=== PATIENT | male | born 1940 | race American Indian/Alaskan Native ===

== ENCOUNTER 2017-04-08 05:42 | Day surgery (SDC) | payer MEDICARE ==
[2017-04-08] MEDS ORDERED: NACL 0.9% 1000 ML 1,000 ML IV SCH (06:00)
[2017-04-08] MEDS ORDERED: PEPCID PO NR (06:00)
[2017-04-08] MEDS ORDERED: ANCEF/STERILE WATER 2 GM/20 ML 2 GM/20 ML SYRINGE IV NR (06:00)
[2017-04-08] MEDS ORDERED: NACL BACTERIOSTATIC INFILTRATI ONE (06:41)
[2017-04-08 07:03] LABS: Basophils % (Auto) 0.5 % (0.0-1.8); Eosinophils % (Auto) 1.8 % (0.0-4.3); Hemoglobin 8.4 gm/dl (11.8-15.2); Mean Corpuscular HGB Conc 32 % (32-34); Mean Corpuscular Hemoglobin 27 pg (28-32); Mean Corpuscular Volume 83 fl (84-94); Platelet Count 216 K/mm3 (140-440); Red Blood Count 3.15 M/mm3 (3.65-5.03); Red Cell Distribution Width 18.6 % (13.2-15.2); White Blood Count 8.9 K/mm3 (4.5-11.0)
[2017-04-08 07:15] LABS: Calcium 8.9 mg/dL (8.4-10.2); Chloride 100.7 mmol/L (98-107); Potassium 3.6 mmol/L (3.6-5.0)
[2017-04-08] MEDS ORDERED: NACL 0.9% 500 ML 500 ML ONE (07:22)
[2017-04-08] MEDS ORDERED: MARCAINE-EPI/PF 0.5%-1:200,000 INFILTRATI ONE (07:22)
[2017-04-08] MEDS ORDERED: HEPARIN ONE (07:22)
[2017-04-08] MEDS ORDERED: HEPARIN 10,000 UNITS/10 ML ONE ×2 (07:23→10:18)
[2017-04-08 07:26] LABS: INR 1.09 (0.87-1.13)
[2017-04-08] MEDS ORDERED: XYLOCAINE MPF 2% ONE (07:28)
[2017-04-08] MEDS ORDERED: SUBLIMAZE ONE (07:29)
--- NOTE | 2017-04-08 07:29 | Anesthesia Consultation ---
Anesthesia Consult and Med Hx Date of service: 04/08/17 - Airway Anesthetic Teeth Evaluation: Edentulous ROM Head & Neck: Adequate Mental/Hyoid Distance: Adequate Mallampati Class: Class II Intubation Access Assessment: Probably Good - Pulmonary Exam CTA: Yes - Cardiac Exam Cardiac Exam: RRR - Pre-Operative Health Status ASA Pre-Surgery Classification: ASA3 Proposed Anesthetic Plan: General - Pulmonary Hx Smoking: Yes (quit 25 years ago) SOB: Yes COPD: Yes Home Oxygen Therapy: Yes (3L/min @ home) Hx Sleep Apnea: Yes (No CPAP) - Cardiovascular System Hx Hypertension: Yes (h/o CHF) Hx Peripheral Vascular Disease: Yes - Central Nervous System Hx Neuromuscular Disorder: No Hx Psychiatric Problems: No - Gastrointestinal Hx Gastroesophageal Reflux Disease: Yes - Endocrine Hx Renal Disease: Yes Hx End Stage Renal Disease: Yes Hx Non-Insulin Dependent Diabetes: Yes (not on insulin or oral meds as of ) - Hematic Hx Anemia: Yes Hx Sickle Cell Disease: No - Other Systems Hx Alcohol Use: Yes (former) Hx Substance Use: No Hx Cancer: No Hx Obesity: No
[2017-04-08] MEDS ORDERED: DIPRIVAN 10 MG/ML IV ONE (07:30)
--- NOTE | 2017-04-08 07:30 | Anesthesia Day of Surgery ---
Anesthesia Day of Surgery - Day of Surgery Patient Examined: Yes Patient H&P Reviewed: Yes Patient is NPO: Yes
[2017-04-08] MEDS ORDERED: DILAUDID IV PRN (08:27)
[2017-04-08] MEDS ORDERED: MARCAINE-EPI 0.5%-1:200,000 INFILTRATI ONE ×2 (08:50)
[2017-04-08] MEDS ORDERED: ePHEDrine SULFATE ONE (09:08)
[2017-04-08] MEDS ORDERED: NACL 0.9% 500 ML IRRIGATION ONE (09:15)
[2017-04-08] MEDS ORDERED: HEPARIN 10,000 UNITS/10 ML IV ONE (09:15)
[2017-04-08] MEDS ORDERED: NACL 0.9% IR ONE (09:19)
[2017-04-08] MEDS ORDERED: ZOFRAN IV PRN (10:00)
[2017-04-08] MEDS ORDERED: ZOFRAN ONE (10:15)
[2017-04-08] MEDS ORDERED: DECADRON ONE (10:15)
--- NOTE | 2017-04-08 11:04 | Operative Report ---
Operative Report Operative Report: Operative note: Date: 04/08/2017 Preoperative diagnosis: Graft pseudoaneurysm with bleeding Postoperative diagnosis: Same. Operation: Left AVG revision with 6 mm AcuSeal Surgeon: Keiko Perdomo. Asst.: None Anesthesia: Gen. 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 Left arm was positioned on extension table, prepped and draped in sterile fashion. This incision along proximal portion of AV graft beyond this to the aneurysmal dilatation was made with 15 blade and carried down with electrocautery. The graft was dissected and surrounded with vessel loop. Next, incision was made over the distal portion of AV graft just beyond pseudoaneurysmal dilatation with 15 blade and carried down with electrocautery. The graft was dissected circumferentially and taken a vessel loop. A 6 mm AcuSeal graft was tunneled using Janet-Wick tunneler. The patient was heparinized with 2000 units of heparin. Then, proximal and distal control of arterial and of the graft was done with DeBakey clamps. Sitting is no portion of AV graft was sutured closed with 5-0 [id number]. End to end anastomosis of AcuSeal to 80 graft was created using 6-0 Prolene circumferentially. Then graft was cut distally and exist any graft was also cut and sent anastomosis was created using 6-0 Prolene. At the end of procedure there was a good radial pulse and thrill in the graft. Patient tolerated procedure well and was transported to PACU in stable condition.
--- NOTE | 2017-04-08 11:11 | Short Stay Summary ---
Short Stay Documentation Date of service: 04/08/17 - History H&P: obtained from office - Allergies and Medications Current Medications: Allergies No Known Allergies Allergy (Unverified 04/05/17 14:42) Home Medications Medication Instructions Recorded Confirmed Last Taken Type Aspirin [Adult Low Dose Aspirin EC] 81 mg PO DAILY 02/28/17 04/08/17 04/07/17 History Sevelamer HCl [Renagel] 800 mg PO TIDWM 02/28/17 04/08/17 04/07/17 History Simvastatin [Zocor TAB] 20 mg PO QHS 02/28/17 04/08/17 04/07/17 History amLODIPine [Norvasc] 5 mg PO DAILY 02/28/17 04/08/17 04/07/17 History Aspirin [Aspirin BABY CHEW TAB] 81 mg PO QDAY 04/08/17 04/08/17 04/07/17 History Carvedilol [Coreg] 25 mg PO BID 04/08/17 04/08/17 04/08/17 07:10 History Fluticasone/Salmeterol [Advair 1 puff IH QDAY 04/08/17 04/08/17 04/01/17 History 250-50 Diskus] Gabapentin [Gabapentin] 100 mg PO QDAY 04/08/17 04/08/17 04/07/17 History Hydralazine HCl [Hydralazine HCl] 25 mg PO TID 04/08/17 04/08/17 04/08/17 04:00 History Ipratropium/Albuterol Sulfate 1 spray IH QID 04/08/17 04/08/17 04/07/17 History [Combivent Respimat] Losartan Potassium [Losartan 50 mg PO QDAY 04/08/17 04/08/17 04/07/17 History Potassium] Meloxicam [Meloxicam] 7.5 mg PO QDAY 04/08/17 04/08/17 04/07/17 History NIFEdipine [NIFEdipine ER] 90 mg PO QDAY 04/08/17 04/08/17 04/08/17 04:00 History Omeprazole (Nf) [PriLOSEC (Nf)] 20 mg PO QDAY 04/08/17 04/08/17 04/07/17 History Rosuvastatin Calcium [Rosuvastatin 10 mg PO QDAY 04/08/17 04/08/17 04/07/17 History Calcium] Active Medications Famotidine (Pepcid) 20 mg PO PREOP NR Stop: 04/08/17 23:59 Last Admin: 04/08/17 07:07 Dose: 20 mg Hydromorphone HCl (Dilaudid) 0.25 mg IV Q10MIN PRN PRN Reason: Pain, Moderate (4-6) Stop: 04/08/17 15:00 Cefazolin Sodium (Ancef/Sterile Water 2 Gm/20 Ml) 2 gm in 20 mls @ 80 mls/hr IV PREOP NR PRN Reason: Protocol Stop: 04/08/17 23:59 Sodium Chloride (Nacl 0.9% 1000 Ml) 1,000 mls @ 42 mls/hr IV DIRECT AISLINN Last Admin: 04/08/17 06:59 Dose: 42 mls/hr - Brief post op/procedure progress note Date of procedure: 04/08/17 Pre-op diagnosis: left brachial axillary AV graft with pseudoaneurysmal dilatation Post-op diagnosis: same Procedure: Revision of left AV graft with 6 mm AcuSeal Anesthesia: GETA Findings: Pseudoaneurysm of AV graft Surgeon: LIYAH LOVETT Estimated blood loss: minimal Pathology: none Condition: stable - Disposition Condition at discharge: Good Disposition: DC-01 TO HOME OR SELFCARE Short Stay Discharge Plan Diet: renal Additional Instructions: AVG OK to be accessed for HD tomorrow. Use early access graft protocol. Need to run lower flow and smaller needles initially. Follow up with: LIYAH LOVETT DO [Staff Physician] - 14 Days Prescriptions: Acetaminophen/Codeine [Tylenol /Codeine # 3 tab] 1 tab PO Q6H PRN #30 tab PRN Reason: Pain, Moderate (4-6)
[2017-04-08 20:16] VITALS: BP 127/66
== END 2017-04-08 13:17 | disposition home or self-care (01) ==
LOC: OR 05:42
PROVIDERS: ATTEND Surgery Vascular Surgery
DX: T82.898A Other specified complication of vascular prosthetic devices, implants and grafts, initial encounter (principal); I77.0 Arteriovenous fistula, acquired; Z87.891 Personal history of nicotine dependence; K21.9 Gastro-esophageal reflux disease without esophagitis; J44.9 Chronic obstructive pulmonary disease, unspecified; E11.22 Type 2 diabetes mellitus with diabetic chronic kidney disease; N18.6 End stage renal disease; I12.0 Hypertensive chronic kidney disease with stage 5 chronic kidney disease or end stage renal disease; E11.51 Type 2 diabetes mellitus with diabetic peripheral angiopathy without gangrene; Y83.8 Other surgical procedures as the cause of abnormal reaction of the patient, or of later complication, without mention of misadventure at the time of the procedure; Y92.89 Other specified places as the place of occurrence of the external cause
CPT/HCPCS: 36415; 36832; 80048; 82962; 85025; 85610; C1768; J0690; J1100; J1644; J2405; J2704; J3010; J7030; J7040